=== PATIENT | female | born 1975 | race Caucasian/White ===

== ENCOUNTER → 2017-07-19 | Outpatient (CLI) | payer BC ==
[~2017-07-19] MED LIST: CLON-298 PO; HYDR12.558 PO; IBU800 PO; LEVO50TA80 PO; LOR5/325 PO; NORG1TAB74 PO; ONDA4TAB PO; PIRO-91 PO; SUMA25TA26 PO; ZOLP-350 PO
--- NOTE | 2017-07-19 15:30 | RADIOLOGY IMAGING REPORT ---
[place]AC[place] [facility] [place] NAME: HENRI CRAWFORD : [id number] MR: [id number] V: [id number] EXAM DATE: ORDERING PHYSICIAN: HAMZAH PETERS TECHNOLOGIST: Ele Galvez PROCEDURE:BILATERAL DIGITAL SCREENING MAMMOGRAM WITH CAD ASSISTED INTERPRETATION AND 3D BREAST TOMOSYNTHESIS. COMPARISON:Prior mammograms dated 07/12/16, 08/25/15, 06/30/15. INDICATIONS:SCREENING FINDINGS: Moderately dense fibroglandular tissue is seen throughout the breasts. The parenchymal pattern has remained stable when allowing for difference in mammographic technique and patient positioning. There is no evidence of malignant appearing mass, malignant appearing calcification or other secondary sign of malignancy in either breast. DIAGNOSTIC CATEGORY 1--NEGATIVE. RECOMMENDATIONS: ROUTINE MAMMOGRAM AND CLINICAL EVALUATION. IMPRESSION: Bi-RADS 1: No significant abnormality is seen. Images were reviewed with R2CAD and 3D breast tomosynthesis. Dictated by: Magdalena Barrientos M.D. on 07/19/2017 at 8:29 Transcribed by: [email or web address] on 07/19/2017 at 13:18 Approved by: Magdalena Barrientos M.D. on 07/19/2017 at 15:29 [facility]
== END ==
LOC: MAMO 01:18
PROVIDERS: ATTEND Obstetrics & Gynecology
DX: Z12.31 Encounter for screening mammogram for malignant neoplasm of breast (principal)
CPT/HCPCS: 77063; 77067

== ENCOUNTER → 2018-07-31 | Outpatient (CLI) | payer BC ==
[~2018-07-31] MED LIST changes: -CLON-298 PO; +CLON-331 PO
--- NOTE | 2018-08-01 16:45 | RADIOLOGY IMAGING REPORT ---
[place]AC[place] [facility] [place]IENT NAME: HENRI CRAWFORD : [id number] MR: [id number] V: [id number] EXAM DATE: [id number] ORDERING PHYSICIAN: HAMZAH PETERS TECHNOLOGIST: Ele Galvez PROCEDURE:BILATERAL DIGITAL SCREENING MAMMOGRAM WITH CAD ASSISTED INTERPRETATION & 3D TOMOSYNTHESIS COMPARISON:Prior mammograms 07/19/17, 07/12/16, 08/25/15, 06/30/15. INDICATIONS:SCREENING FINDINGS: Scattered fibroglandular densities are seen throughout the breasts. The parenchymal pattern has remained stable allowing for difference in mammographic technique & patient positioning. DIAGNOSTIC CATEGORY 1--NEGATIVE. RECOMMENDATIONS: ROUTINE MAMMOGRAM AND CLINICAL EVALUATION. IMPRESSION: BIRADS 1: Negative. No significant abnormality is seen. Dictated by: Magdlaena Barrientos M.D. on 07/31/2018 at 17:01 Transcribed by: [email or web address] on 08/01/2018 at 8:37 Approved by: Magdalena Barrientos M.D. on 08/01/2018 at 16:44 [facility]
== END ==
LOC: MAMO 01:02
PROVIDERS: ATTEND Obstetrics & Gynecology
DX: Z12.31 Encounter for screening mammogram for malignant neoplasm of breast (principal)
CPT/HCPCS: 77063; 77067